=== PATIENT | female | born 1990 | race Two or more races ===

== ENCOUNTER 2021-04-17 20:18 | Observation (INO) | payer SELFPAY ==
[~2021-04-17] VITALS: Ht 158 cm; Wt 54.0 kg
[2021-04-17] MEDS ORDERED: LACTATED RINGER'S 1,000 ML IV ONE (20:30)
[2021-04-17] MEDS: TERBUTALINE SULFATE 1 MG/ML 1ML VIAL SC ONE ×2 (20:55→20:58)
[2021-04-17] MEDS: TERBUTALINE SULFATE 1 MG/ML 1ML VIAL SC SCH ×3 (20:57→22:45)
[2021-04-17] MEDS ORDERED: BETAMETHASONE ACET (30mg/5ml) 5ml Vial 6mg/ml IM ONE (21:30)
[2021-04-17 21:42] LABS: Urine Bacteria MANY /hpf (None Seen); Urine Blood 3+ /uL (Negative); Urine Specific Gravity 1.006 (1.001-1.035); Urine WBC 27 /hpf (0 - 5)
[2021-04-17 21:54] LABS: Alcohol, Urine < 3.0 mg/dL (0-10); Amphetamine Screen, Urine NEGATIVE (NEGATIVE); Barbiturate Scree,Urine NEGATIVE (NEGATIVE); Benzodiazephine Screen, Urine NEGATIVE (NEGATIVE); Cannabinoid Screen, Urine NEGATIVE (NEGATIVE); Cocaine Screen, Urine NEGATIVE (NEGATIVE); Opiate Scree,Urine NEGATIVE (NEGATIVE); Phencyclidine Screen, Urine NEGATIVE (NEGATIVE)
[2021-04-17] MEDS ORDERED: NIF10C PO (21:59)
[2021-04-17] MEDS ORDERED: NIFEdipine 10 MG CAP PO ONE (22:15)
== END 2021-04-18 00:43 | disposition home or self-care (01) ==
LOC: LDRP 20:18
PROVIDERS: ADMIT Obstetrics & Gynecology; ATTEND Obstetrics & Gynecology
DX: O60.03 Preterm labor without delivery, third trimester (principal); O62.9 Abnormality of forces of labor, unspecified; Z3A.28 28 weeks gestation of pregnancy; Z79.899 Other long term (current) drug therapy; Z98.890 Other specified postprocedural states
CPT/HCPCS: 59025; 76805; 80307; 81001; 81002; 94760; 96360; 96361; 96372; G0378; J0702; J3105